=== PATIENT | female | born 1940 | race Hispanic/Latino ===

== ENCOUNTER → 2017-12-15 | Outpatient (CLI) | payer OTHER ==
[~2017-12-15] MED LIST: AMLODIPINE PO; ASPI-1005 PO; ATORVASTATIN PO; CLOP75TA14 PO; FERR325T22 PO; HYDR200T82 PO; IBUPROPHEN PO; LEVO50TA11 PO; METF-444 PO; METO25TA6 PO; MULTIVITAMIN; PIOG30TA10 PO; RAMI10CA69 PO; SITA100T12 PO
== END | disposition home or self-care (01) ==
LOC: RAH 07:42
PROVIDERS: ATTEND Family Medicine
DX: Z12.31 Encounter for screening mammogram for malignant neoplasm of breast (principal)
CPT/HCPCS: 77067

== ENCOUNTER → 2018-02-07 | Outpatient (CLI) | payer OTHER | END | disposition home or self-care (01) | LOC: SHCH 10:00 | PROVIDERS: ATTEND Internal Medicine Cardiovascular Disease | DX: I65.23 Occlusion and stenosis of bilateral carotid arteries (principal) | CPT/HCPCS: 93880 ==

== ENCOUNTER 2018-02-16 10:15 | Emergency (ER) | payer OTHER ==
[2018-02-16 11:10] LABS: CREATININE 1.1 mg/dL (0.5-1.5); POTASSIUM 3.7 mmol/L (3.5-5.1)
[2018-02-16 11:25] LABS: BASOPHILS % (AUTO) 0.2 % (0.0-5.0); EOSINOPHILS % (AUTO) 0.3 % (0.0-8.0); HEMATOCRIT 31.6 % (36-48); LYMPHOCYTES % (AUTO) 11.5 % (21.0-51.0); MEAN CORPUSCULAR HEMOGLOBIN 29.8 pg (27.0-33.0); MEAN CORPUSCULAR HGB CONC 32.7 g/dL (32.0-36.0); MONOCYTES % (AUTO) 6.2 % (3.0-13.0); NEUTROPHILS % (AUTO) 81.8 % (40.0-77.0); PLATELET COUNT (AUTO) 235 K/uL (130-400); RED BLOOD CELL COUNT(AUTO) 3.47 MIL/uL (4.00-5.50); RED CELL DISTRIBUTION WIDTH 15.4 % (11.0-15.5); WHITE BLOOD COUNT (AUTO) 7.2 K/uL (4.8-10.8)
[2018-02-16] MEDS ORDERED: ACETAMINOPHEN-CODEINE 300/30MG TAB ONE (11:31)
[2018-02-16 11:53] LABS: APPEARANCE,URINE CLEAR (CLEAR); BILIRUBIN,URINE NEGATIVE (NEGATIVE); COLOR,URINE YELLOW (YELLOW); GLUCOSE, URINE (UA) NEGATIVE (NEGATIVE); KETONES,URINE NEGATIVE (NEGATIVE); LEUKOCYTE ESTERASE ,URINE SMALL (NEGATIVE); NITRATE,URINE NEGATIVE (NEGATIVE); OCCULT BLOOD,URINE NEGATIVE (NEGATIVE); PROTEIN,URINE NEGATIVE (NEGATIVE); UROBILINOGEN,URINE 0.2 mg/dL (0.2-1.0)
[2018-02-16 12:14] LABS: RBC,URINE 0-1 /HPF (0-1)
[2018-02-16 12:15] LABS: BACTERIA,URINE Few /HPF (None Seen); SQUAMOUS EPITHELIAL CELL,UR 0-2 /HPF (0-2)
[2018-02-16] MEDS ORDERED: CEFTRIAXONE SODIUM 1 GM ONE (12:43)
[2018-02-16] MEDS ORDERED: KETOROLAC TROMETHAMINE 15MG/ML ONE (12:43)
[2018-02-16] MEDS ORDERED: SODIUM CHLORIDE 0.9% 50 ML IV ONE (12:43)
== END 2018-02-16 14:19 | disposition home or self-care (01) ==
LOC: EDH 10:15
DX: L03.116 Cellulitis of left lower limb (principal); I10 Essential (primary) hypertension; E11.9 Type 2 diabetes mellitus without complications; E78.5 Hyperlipidemia, unspecified; I25.10 Atherosclerotic heart disease of native coronary artery without angina pectoris; Z98.890 Other specified postprocedural states
CPT/HCPCS: 36415; 73620; 80048; 81001; 85025; 87040; 93971; 96374; 96375; 99284; J0696; J1885

== ENCOUNTER → 2018-12-17 | Outpatient (CLI) | payer OTHER | END | disposition home or self-care (01) | LOC: RAH 07:38 | PROVIDERS: ATTEND Family Medicine | DX: Z12.31 Encounter for screening mammogram for malignant neoplasm of breast (principal) | CPT/HCPCS: 77067 ==

== ENCOUNTER → 2023-01-20 | Outpatient (CLI) | payer OTHER ==
[~2023-01-20] MED LIST changes: -AMLODIPINE PO; +ATOR40TA71 PO; -ATORVASTATIN PO; -CLOP75TA14 PO; +DULA3PEN SQ; +EMPA10TA PO; +FURO20TA4 PO; -IBUPROPHEN PO; -LEVO50TA11 PO; +LEVO88CA4 PO; +LISI20TA24 PO; -METO25TA6 PO; +METO50TA18 PO; +MULT-1367 PO; -PIOG30TA10 PO; -RAMI10CA69 PO; -SITA100T12 PO
== END | disposition home or self-care (01) ==
LOC: SHCH 13:26
PROVIDERS: ATTEND Internal Medicine Cardiovascular Disease
DX: R09.89 Other specified symptoms and signs involving the circulatory and respiratory systems (principal)
CPT/HCPCS: 93880

== ENCOUNTER → 2023-01-24 | Outpatient (CLI) | payer OTHER ==
[~2023-01-24] MED LIST changes: +REGADENOSON 0.4 MG/5 ML PF SYG IVP ONE
== END | disposition home or self-care (01) ==
LOC: SHCH 08:11
PROVIDERS: ATTEND Internal Medicine Cardiovascular Disease
DX: R09.89 Other specified symptoms and signs involving the circulatory and respiratory systems (principal); Z95.4 Presence of other heart-valve replacement; Z95.5 Presence of coronary angioplasty implant and graft
CPT/HCPCS: 78452; 96374; 93017; J2785; A9500 ×2

== ENCOUNTER → 2024-02-14 | Outpatient (CLI) | payer OTHER ==
[~2024-02-14] MED LIST changes: -REGADENOSON 0.4 MG/5 ML PF SYG IVP ONE
--- NOTE | 2024-02-18 14:34 | HMCSR ---
APPROVED REPORT EXAM: Two-dimensional and M-mode echocardiogram with Doppler and color Doppler. INDICATION ICD: Cardiac murmur, unspecified R01.1 RISK FACTORS Hypertension Hyperlipidemia Diabetes 2D Dimensions RVDd3.4 cmLVEF(%)56.0 (>50%)LVED Vol(simp.)91.0 mL IVSd1.1 (0.7-1.1cm)FS(%)29 %LVES Vol(simp.)35.0 mL LVDd4.7 (3.8-5.6cm)Ao Root(2D)2.8 (2.0-3.7cm)LVEF(%, simp.)62 % PWd1.1 (0.7-1.1cm)LVOT diam1.9 (1.8-2.4cm)LA ESV INDEX (BP)46.92 mL/m2 LVDs3.3 (2.5-4.0cm)IVC diam1.6 cm Aortic Valve AoV Vmax1.7 m/Ana Peak GR12.1 mmHgLVOT Vmax1.3 m/s AoV VTI0.4 mAo Mean GR6.4 mmHgLVOT VTI0.31 m SUNNY (VMAX)2.3 cm2AVA (VTI) 2.3 cm2 Mitral Valve MV E Vmax84.0 cm/sDECEL Qrhu070 ms MV A Bfxc284.5 cm/sP 1/2 T77 ms E/A ratio0.7MVA (PHT)2.9 cm2 MR Max PG102 mmHg TDI E/E' Nmvpoj42.8E/E' Vebjyhf91.6 Pulmonary Valve PV Vmax0.9 m/sPV VTI0.18 mPV Mean GR2 mmHg PV Peak GR3.6 mmHg Tricuspid Valve TR Vmax3.1 m/sRAP (EST) 3 zfBrHRPS05.5 mmHg TR Peak GR39.5 mmHg Left Ventricle Left ventricular cavity size is normal. There is normal LV segmental wall motion. There is normal lef t ventricular wall thickness. LVEF is 55-60%. No left ventricle thrombus noted on this study. Stage I I, diastolic dysfunction. Right Ventricle The right ventricle is normal size. The right ventricular systolic function is normal. Atria The left atrium is borderline dilated. Atrial septal aneurysm is present. The right atrium size is no rmal. Aortic Valve Aortic valve is trileaflet. The aortic valve is mildly thickened but opens well. Trace aortic regurgi tation. There is no aortic valvular stenosis. Mitral Valve Mitral annular calcification is moderate. Mitral valve leaflets are mildly calcified. Mitral regurgit ation is mild. There is no mitral valve stenosis. Tricuspid Valve The tricuspid valve leaflets appear normal. There is moderate tricuspid regurgitation. Right ventricu lar systolic pressure is estimated at 40-50 mmHg. Pulmonic Valve The pulmonic valve leaflets are thin and pliable; valve motion is normal. There is trace pulmonic kelsey vular regurgitation. Great Vessels The aortic root is normal in size. The IVC is normal in size and collapses >50% with inspiration. Pericardium No pericardial effusion. Conclusion Left ventricular cavity size is normal. LVEF is 55-60%. Stage II, diastolic dysfunction. The right ventricle is normal size. The left atrium is borderline dilated. Aortic valve is trileaflet. The aortic valve is mildly thickened but opens well. Trace aortic regurgitation. Mitral annular calcification is moderate. Mitral valve leaflets are mildly calcified. Mitral regurgitation is mild. There is moderate tricuspid regurgitation. Right ventricular systolic pressure is estimated at 40-50 mmHg. There is trace pulmonic valvular regurgitation. The aortic root is normal in size. The IVC is normal in size and collapses >50% with inspiration.
== END | disposition home or self-care (01) ==
LOC: SHCH 10:06
PROVIDERS: ATTEND Internal Medicine Cardiovascular Disease
DX: I08.3 Combined rheumatic disorders of mitral, aortic and tricuspid valves (principal); I11.9 Hypertensive heart disease without heart failure; E78.5 Hyperlipidemia, unspecified; R01.1 Cardiac murmur, unspecified; E11.9 Type 2 diabetes mellitus without complications
CPT/HCPCS: 93306

== ENCOUNTER → 2024-02-29 | Outpatient (CLI) | payer OTHER ==
[2024-02-29 12:38] LABS: ALBUMIN 3.6 g/dL (3.5-5.0); BILIRUBIN,TOTAL 0.4 mg/dL (0.2-1.0); CREATININE 1.8 mg/dL (0.5-1.0); POTASSIUM 4.7 mmol/L (3.5-5.1); TOTAL PROTEIN, SERUM 7.4 g/dL (6.0-8.3)
== END | disposition home or self-care (01) ==
LOC: LAB 09:50
PROVIDERS: ATTEND Internal Medicine Cardiovascular Disease
DX: I10 Essential (primary) hypertension (principal); E78.5 Hyperlipidemia, unspecified; Z79.899 Other long term (current) drug therapy
CPT/HCPCS: 36415; 80053; 80061; 82306

== ENCOUNTER 2024-03-24 09:32 | Emergency (ER) | payer OTHER ==
[~2024-03-24] VITALS: Ht 162.6 cm; Wt 83.5 kg
[~2024-03-24 09:32] MED LIST changes: +ATOR40TA69 PO; -ATOR40TA71 PO; +CHOL10CA2 PO; +DAPA10TA PO; -DULA3PEN SQ; -EMPA10TA PO; +LEVO-70 PO; -MULTIVITAMIN; +TIRZ5PEN SQ
[2024-03-24 09:37] VITALS: BP 132/62; PULSE 83; RESP 16; TEMP 97.3; O2SAT 98
--- NOTE | 2024-03-24 11:01 | ERN ---
ED Note History of Present Illness Stated Complaint: LEFT FOOT PAIN Chief Complaint: FOOT INJURY/PAIN Time Seen by MD: 10:03 Dictation: PATIENT IS A 83-YEAR-OLD DIABETIC FEMALE HERE WITH KNOWN NEUROPATHY COMPLAINING OF LEFT PLANTAR FOOT PAIN SHE HAD ONSET YESTERDAY. NO FEVER NO CHILLS NO NAUSEA VOMITING. SHE DENIES ANY TRAUMA. STATES HER DOCTOR IS AT [facility]. HAS NOT BEEN TO SEE THEM FOR THIS PAIN. Allergies: Coded Allergies: No Known Allergies (Unverified Allergy, Unknown, 12/30/13) Home Meds Active Scripts Levofloxacin (Levofloxacin) 500 Mg Tablet, 1 TAB PO DAILY for 7 Days, #7 TAB 0 Refills Prov:KEN APPLE Jazmyne 03/14/24 Reported Medications Tirzepatide (Mounjaro) 5 Mg/0.5 Ml Pen.injctr, 5 MG SQ QWEEK 03/11/24 Dapagliflozin Propanediol (Farxiga) 10 Mg Tablet, 1 TAB PO DAILY for 30 Days, #30 TAB 0 Refills 03/11/24 Atorvastatin Calcium (LIPITOR) 80 Mg Tablet, 1 TAB PO DAILY for 30 Days, #30 TAB 0 Refills 03/11/24 Cholecalciferol (Vitamin D3) (Vitamin D3) 10 Mcg (400 Unit) Capsule, 10 MCG PO DAILY, CAP 03/11/24 Multivitamin (Multivitamin) 1 Each Tablet, 1 EACH PO DAILY, TAB 08/11/22 Levothyroxine Sodium (Levothyroxine) 88 Mcg Capsule, 88 MCG PO DAILY, CAP 07/26/22 Furosemide (Furosemide) 20 Mg Tablet, 20 MG PO DAILY, TAB 07/26/22 Metoprolol Tartrate (Metoprolol Tartrate) 50 Mg Tablet, 50 MG PO BID, TAB 07/26/22 Lisinopril (Lisinopril) 20 Mg Tablet, 20 MG PO DAILY, TAB 07/26/22 Ferrous Sulfate (Ferrous Sulfate) 325 Mg Tablet, 325 MG PO BID, TAB 05/22/15 Aspirin (ASPIRIN 81MG CHEW TAB) 81 Mg Tab.chew, 81 MG PO DAILY, TAB.CHEW 05/22/15 Hydroxychloroquine Sulfate (Plaquenil) 200 Mg Tablet, 200 MG PO DAILY, TAB 12/30/13 Metformin HCl (Metformin HCl) 500 Mg Tablet, 500 MG PO BID, TAB 10/6/14 Past Medical History Past Medical History: Anemia, Arthritis, Diabetes-Type II, High Cholesterol, Hypertension, Other (DIABETIC NEUROPATHY) Additional Past Medical Hx: URINE RETENTION Surgical History: Other Surgical History Other: RIGHT KNEE SX History: Not Applicable RN Note Reviewed/Agreed w/PFSH: Yes Review of System Dictation CONSTITUTIONAL: NEGATIVE EXCEPT FOR HPI HEAD/FACE: NEGATIVE EXCEPT FOR HPI EENT: NEGATIVE EXCEPT FOR HPI RESPIRATORY: NEGATIVE EXCEPT FOR HPI GASTROINTESTINAL/ABDOMINAL: NEGATIVE EXCEPT FOR HPI GENITOURINARY: NEGATIVE EXCEPT FOR HPI MUSCULOSKELETAL: NEGATIVE EXCEPT FOR HPI LEFT PLANTAR FOOT PAIN INTEGUMENTARY: NEGATIVE EXCEPT FOR HPI NEUROLOGICAL/PSYCH: NEGATIVE EXCEPT FOR HPI HEMATOLOGIC/LYMPHATIC: NEGATIVE EXCEPT FOR HPI ALL SYSTEMS NEGATIVE, EXCEPT NOTED ABOVE. 13 POINT REVIEW OF SYSTEMS ASSESSED AND ALL NEGATIVE EXCEPT FOR ABOVE. Initial Vital Sign VS Vital Signs Date Time Temp Pulse Resp B/P (MAP) Pulse Ox O2 Delivery O2 Flow Rate FiO2 03/24/24 09:34 97.0 83 16 132/62 98 Room Air 0 03/24/24 09:37 21 Physical Exam Dictation VITAL SIGNS REVIEWED GENERAL APPEARANCE: ALERT, ORIENTED X 3, MILD ACUTE DISTRESS, WELL DEVELOPED, NOURISHED. HEAD AND FACE: NON-TRAUMATIC. EYES: PERRL, PINK CONJUNCTIVAS, EYELID NO TRAUMA, ANTERIOR CHAMBER WITH ARCUS SENILIS. EARS: PINNAS INTACT AND NO SIGNS OF TRAUMA OR ERYTHEMA EAR CANALS CLEAR AND NO DISCHARGE TM NO ERYTHEMA NOSE: NO DISCHARGE, NO BLEEDING. OROPHARYNX: MOUTH NORMAL, TONGUE PINK, PHARYNX CLEAR,NO ERYTHEMA, TONSILS NO EXUDATES, NO ABSCESSES NOTED, MUCOUS MEMBRANE MOIST NECK: SUPPLE, NON-TENDER, NO THYROMEGALY, NO MASSES, NO JVD, NO BRUITS BREAST:DEFERRED CHEST:NO TENDERNESS, NO CREPITUS, NO PARADOXICAL MOVEMENT, NO RETRACTIONS LUNGS:CLEAR, WELL-VENTILATED, SYMMETRIC, NO RALES, NO WHEEZING, NO RHONCHI, NO STRIDOR, GOOD BREATH SOUNDS BILATERALLY HEART: REGULAR RATE, REGULAR RHYTHM, NO MURMUR, NO GALLOPS VASCULAR: NO PERIPHERAL EDEMA, ABDOMEN: SOFT, POSITIVE BOWEL SOUNDS, NONDISTENDED, NO GUARDING, NONTENDER, NO REBOUND, NO MASSES NO HEPATOMEGALY, NO SPLENOMEGALY, NO ESTRADA'S SIGN, NO HERNIAS. RECTAL: DEFERRED GENITAL: DEFERRED NEUROLOGICAL: NORMAL SPEECH, MOTOR FUNCTION INTACT, SENSORY FUNCTION INTACT MUSCULOSKELETAL: NECK NONTENDER, FULL RANGE OF MOTION, BACK NONTENDER, FULL RANGE OF MOTION, EXTREMITIES: NONTENDER, FULL RANGE OF MOTION NEUROVASCULAR CMS INTACT TO LEFT FOOT. TENDER TO TOUCH SKIN: COLOR PINK, DRY, NO TURGOR, NO RASH, NO LACERATIONS, NO ABRASIONS, NO CONTUSIONS. LYMPHATIC: DEFERRED Results (Laboratory/Radiology) Laboratory/Radiology Laboratory Tests Test 03/24/24 12:17 White Blood Count 6.7 K/uL (4.8-10.8) Red Blood Count 3.52 MIL/uL (4.00-5.50) L Hemoglobin 9.8 g/dL (12.0-16.0) L Hematocrit 30.9 % (36-48) L Mean Corpuscular Volume 87.8 fL (79-99) Mean Corpuscular Hemoglobin 27.8 pg (27.0-33.0) Mean Corpuscular Hemoglobin Concent 31.7 g/dL (32.0-36.0) L Red Cell Distribution Width 16.0 % (11.0-15.5) H Platelet Count 276 K/uL (130-400) Mean Platelet Volume 10.7 fL (7.5-10.5) H Immature Granulocyte % (Auto) 0.3 % (0-1) Neutrophils (%) (Auto) 74.4 % (40.0-77.0) Lymphocytes (%) (Auto) 16.6 % (21.0-51.0) L Monocytes (%) (Auto) 7.9 % (3.0-13.0) Eosinophils (%) (Auto) 0.4 % (0.0-8.0) Basophils (%) (Auto) 0.4 % (0.0-5.0) Neutrophils # (Auto) 5.0 K/uL (1.8-7.7) Lymphocytes # (Auto) 1.1 K/uL (1.0-4.8) Monocytes # (Auto) 0.5 K/uL (0.1-1.0) Eosinophils # (Auto) 0.03 K/uL (0.00-0.70) Basophils # (Auto) 0.03 K/uL (0.00-0.20) Absolute Immature Granulocyte (auto 0.02 K/uL (0-1) Nucleated Red Blood Cells 0.0 % (0.0-0.19) Sodium Level 142 mmol/L (136-145) Potassium Level 4.3 mmol/L (3.5-5.1) Chloride Level 103 mmol/L (101-111) Carbon Dioxide Level 27 mmol/L (21-32) Blood Urea Nitrogen 28 mg/dL (7-18) H Creatinine 1.7 mg/dL (0.5-1.0) H Glomerular Filtration Rate Calc 30 mL/min (>90) Random Glucose 126 mg/dL (70-105) H Uric Acid 8.1 mg/dL (2.6-7.2) H Total Calcium 8.9 mg/dL (8.5-10.1) Labs Reviewed?: Yes ED Course ED Course Orders Procedure Category Date Status Time Foot Comp 3+Vws Lt RAD 03/24/24 Resulted 10:55 Acetaminophen 500mg PHA 03/24/24 Complete Tab (Tylenol 500mg T 11:00 Uric Acid LAB 03/24/24 Complete 10:55 Cbc With Differential LAB 03/24/24 Complete 10:55 Basic Metabolic Panel LAB 03/24/24 Complete 10:55 Current Medications Medications (Trade) Dose Ordered Sig/Celestino Route PRN Reason Start Time Stop Time Status Last Admin Dose Admin Acetaminophen (TYLenol 500MG TAB) 1,000 mg ONCE ONCE PO 03/24/24 11:00 03/24/24 11:01 DC Vital Signs Date Time Temp Pulse Resp B/P (MAP) Pulse Ox O2 Delivery O2 Flow Rate FiO2 03/24/24 09:37 97.3 83 16 132/62 98 Room Air* 0 21 03/24/24 09:34 97.0 83 16 132/62 98 Room Air 0 1350, PATIENT WILL BE DISCHARGED HOME WITH URIC ACID 8.1 AN ACUTE GOUTY ARTHRITIS. SHE WILL BE GIVEN COLCHICINE AND TOLD TO SEE HER PRIMARY CARE DOCTOR ON MONDAY OR MONDAY WITHOUT FAIL FOR FOLLOW UP AND MANAGEMENT Medical Decision Making MDM MEDICAL DISCHARGE MAKING BASED ON BASIC LABS AND X-RAY OF FOOT. URIC ACID WAS DRAWN AND 8.1. PATIENT DISCHARGED HOME WITH A ACUTE GOUTY ARTHRITIS FLARE GIVEN COLCHICINE AND TOLD TO SEE HER PRIMARY CARE DOCTOR ON MONDAY OR MONDAY WITHOUT FAIL DX & DISP Disposition: Discharge Departure Impression: Primary Impression: Acute gout Additional Impressions: Stage 3 chronic kidney disease, Diabetes mellitus with hyperglycemia Condition: Stable Scripts Colchicine (Colchicine) 0.6 Mg Capsule 1 CAP PO BID, #30 0 Refills TAKE ONE CAPSULE TWICE A DAY NEEDED FOR TOE PAIN. Prov: KATIE TILLMAN NP 03/24/24 Additional Instructions: FOLLOW-UP WITH PRIMARY CARE PROVIDER IN 1 TO 2 DAYS. TAKE MEDICATIONS DIRECTED HERE IN THE EMERGENCY ROOM. OKAY TO CONTINUE HOME MEDICATIONS UNLESS OTHERWISE DISCUSSED DURING YOUR VISIT IN THE EMERGENCY ROOM TODAY. RETURN TO YOUR NEAREST EMERGENCY ROOM IF SYMPTOMS WORSEN OR IF THERE IS NO IMPROVEMENT. CALL 911 IF YOU NEED IMMEDIATE ASSISTANCE. TAKE TYLENOL OR MOTRIN [id number] NEEDED AND IF NO CONTRAINDICATIONS ARE PRESENT. INCREASE ORAL HYDRATION. A WOUND CULTURE OR URINE CULTURE WAS ORDERED HERE IN THE EMERGENCY ROOM DEPARTMENT PLEASE FOLLOW-UP WITH PRIMARY CARE PROVIDER AND ADVISE THEM TO GET REPEAT PORTS FROM OUR FACILITY. IF YOU HAD ANY MEGAN WRAP/SPLINTS THAT WERE APPLIED HERE, PLEASE DO NOT REMOVE THEM UNTIL YOU SEE YOUR PRIMARY CARE OR SPECIALTY. TAKE COLCHICINE DIRECTED FOR YOUR GOUT. SEE YOUR PRIMARY CARE DOCTOR FOR FOLLOW UP IN 1-2 DAYS. Referrals: BROOKE VALADEZ MD (PCP) KATIE TILLMAN NP Mar 24, 2024 11:01
--- NOTE | 2024-03-24 11:57 | HMCIMG ---
FOOT COMP 3+VWS LT INDICATION: NON TRAUMA LEFT PLANTAR FOOT PAIN ONSET YESTERDAY. HISTORY OF DIABETES TECHNIQUE: FOOT COMP 3+VWS LT. FINDINGS/IMPRESSION: No displaced fracture or dislocation is seen. Correlate clinically. There is mild soft tissue swelling. Plantar calcaneal enthesophyte is seen. There is mild degenerative changes of the midfoot. There is diffuse osteopenia limiting evaluation of the study.
[2024-03-24 12:32] LABS: BASOPHILS # (AUTO) 0.03 K/uL (0.00-0.20); BASOPHILS % (AUTO) 0.4 % (0.0-5.0); EOSINOPHILS # (AUTO) 0.03 K/uL (0.00-0.70); EOSINOPHILS % (AUTO) 0.4 % (0.0-8.0); HEMATOCRIT 30.9 % (36-48); IMMATURE GRANULOCYTE ABSOLUTE 0.02 K/uL (0-1); LYMPHOCYTES # (AUTO) 1.1 K/uL (1.0-4.8); LYMPHOCYTES % (AUTO) 16.6 % (21.0-51.0); MEAN CORPUSCULAR HEMOGLOBIN 27.8 pg (27.0-33.0); MEAN CORPUSCULAR HGB CONC 31.7 g/dL (32.0-36.0); MEAN CORPUSCULAR VOLUME 87.8 fL (79-99); MONOCYTES # (AUTO) 0.5 K/uL (0.1-1.0); MONOCYTES % (AUTO) 7.9 % (3.0-13.0); NEUTROPHILS % (AUTO) 74.4 % (40.0-77.0); PLATELET COUNT (AUTO) 276 K/uL (130-400); RED BLOOD CELL COUNT(AUTO) 3.52 MIL/uL (4.00-5.50); WHITE BLOOD COUNT (AUTO) 6.7 K/uL (4.8-10.8)
[2024-03-24 12:49] LABS: CREATININE 1.7 mg/dL (0.5-1.0); POTASSIUM 4.3 mmol/L (3.5-5.1); URIC ACID 8.1 mg/dL (2.6-7.2)
--- NOTE | 2024-03-24 13:47 | NUR ---
PT JUST NOW PLACED IN MY ED BED 17
--- NOTE | 2024-03-24 13:47 | NUR ---
PT JUST NOW ASSIGNED TO MY ED BED 17.
[2024-03-24] MEDS ORDERED: COLC0.6C3 PO (13:53)
[2024-03-24] MEDS: acetaMINOPHEN 500 MG TABLET PO ONE (13:59)
== END 2024-03-24 14:19 | disposition home or self-care (01) ==
LOC: EDH 09:32
DX: M10.9 Gout, unspecified (principal); I12.9 Hypertensive chronic kidney disease with stage 1 through stage 4 chronic kidney disease, or unspecified chronic kidney disease; E11.22 Type 2 diabetes mellitus with diabetic chronic kidney disease; N18.30 Chronic kidney disease, stage 3 unspecified; E11.40 Type 2 diabetes mellitus with diabetic neuropathy, unspecified; E11.65 Type 2 diabetes mellitus with hyperglycemia; E78.00 Pure hypercholesterolemia, unspecified; M19.90 Unspecified osteoarthritis, unspecified site; Z79.82 Long term (current) use of aspirin; Z79.84 Long term (current) use of oral hypoglycemic drugs; Z79.85 Long-term (current) use of injectable non-insulin antidiabetic drugs; Z79.890 Hormone replacement therapy; Z79.899 Other long term (current) drug therapy
CPT/HCPCS: 36415; 73630; 80048; 84550; 85025; 99284